=== PATIENT | female | born 2000 | race Caucasian/White ===

== ENCOUNTER 2024-03-23 19:59 | Emergency (ER) | payer BC ==
[~2024-03-23] VITALS: Ht 154.9 cm; Wt 54.4 kg
[2024-03-23 20:21] VITALS: BP_SYST 105; PULSE 83; RESP 17; TEMP 98.4; O2SAT 97
[2024-03-23] MEDS ORDERED: IBUP-1969 PO (23:47)
[2024-03-23] MEDS ORDERED: PRED50TA PO (23:47)
[2024-03-23 23:53] VITALS: BP_SYST 105; PULSE 83; RESP 17; TEMP 98.4; O2SAT 97
== END 2024-03-23 23:54 | disposition home or self-care (01) ==
LOC: SED 19:59
DX: J02.9 Acute pharyngitis, unspecified (principal); R11.0 Nausea; R50.9 Fever, unspecified
CPT/HCPCS: 99283